=== PATIENT | female | born 2000 | race Caucasian/White ===

== ENCOUNTER 2024-03-05 17:14 | Outpatient (CLI) | payer OTHER, SELFPAY ==
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
== END 2024-03-05 17:15 | disposition home or self-care (01) ==
LOC: MRI 17:16
PROVIDERS: PCP Chiropractor; Visit Provider Chiropractor
DX: M54.2 Cervicalgia (principal); R20.0 Anesthesia of skin; R20.1 Hypoesthesia of skin
CPT/HCPCS: 72141

== ENCOUNTER 2024-03-09 12:39 | Outpatient (CLI) | payer OTHER, SELFPAY ==
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
== END 2024-03-09 12:40 | disposition home or self-care (01) ==
PROVIDERS: PCP Chiropractor; Visit Provider Chiropractor
DX: M25.562 Pain in left knee (principal); S80.02XA Contusion of left knee, initial encounter; S83.92XA Sprain of unspecified site of left knee, initial encounter
CPT/HCPCS: 73721